=== PATIENT | female | born 1985 | race Caucasian/White ===

== ENCOUNTER 2018-11-01 15:00 | Outpatient (CLI) | payer BC | END 2018-11-01 15:01 | disposition home or self-care (01) | LOC: SLEEPLAB 15:00 | PROVIDERS: ATTEND Family Medicine | DX: G47.33 Obstructive sleep apnea (adult) (pediatric) (principal); R53.83 Other fatigue; R06.83 Snoring; F32.9 Major depressive disorder, single episode, unspecified; G47.00 Insomnia, unspecified; F90.9 Attention-deficit hyperactivity disorder, unspecified type | CPT/HCPCS: 95806 ==

== ENCOUNTER 2018-11-14 11:41 | Emergency (ER) | payer BC ==
[2018-11-14 12:10] LABS: #Basophils 0.1 thou/uL (0.0-0.2); #Lymphocytes 1.7 thou/uL (1.20-3.40); #Monocytes 0.5 thou/uL (0.11-0.59); #Neutrophils 4.4 thou/uL (1.40-6.50); %Basophils 0.9 % (0.0-1.0); %Eosinophils 0.4 % (0.0-10.0); %Monocytes 7.2 % (0.0-10.0); %Neutrophils 65.4 % (42.0-75.0); Hemoglobin 13.9 g/dL (12.0-16.0); Mean Corpuscular HGB CONC 33.3 g/dL (32.0-36.0); Mean Corpuscular Volume 89.9 fL (78.0-98.0); Mean Platelet Volume 6.4 fL (7.4-10.4); Platelet Count 341 thou/uL (130-400); RBC Distribution Width 11.4 % (11.5-14.5); Red Blood Cell (RBC) Count 4.63 mill/uL (4.20-5.40); White Blood Cell (WBC) Count 6.7 thou/uL (4.8-10.8)
[2018-11-14 12:18] LABS: Bilirubin Negative (Negative); Blood, Urine Trace (Negative); Glucose, Urine (Dipstick) Negative (Negative); Leukocyte Negative (Negative); Nitrite Negative (Negative); Protein, Urine (Dipstick) Negative (Neg-Trace); Urobilinogen 0.2 mg/dL (Less than 2)
[2018-11-14 12:19] LABS: Pregnancy Test - Urine (BHCG) Negative (Negative); Pregu Control Background? CLEAR/WHITE (CLR/WHITE); Pregu Control Bar Appear? YES (CONTROL BAR); Specific Gravity 1.015 (1.002-1.036)
[2018-11-14 12:27] LABS: Clarity Clear (Clear)
[2018-11-14 12:34] LABS: Bacteria/HPF Rare-Few HPF (None Seen); RBC/HPF 0-3 HPF (0-3); Squamous Epithelial 0-3 HPF (0-3); WBC/HPF 0-3 HPF (0-3)
[2018-11-14 12:36] LABS: ALT (SGPT) 16 U/L (8-55); AST (SGOT) 22 U/L (5-34); Albumin 4.5 g/dL (3.5-5.0); Alkaline Phosphatase 47 U/L (40-150); Anion Gap 13 mmol/L (10-20); BUN (Urea Nitrogen) 11 mg/dL (7.0-18.7); Bilirubin, Total 0.3 mg/dL (0.2-1.2); Calc. Creatinine Clearance 0 mL/min (70-130); Calcium 9.4 mg/dL (7.8-10.44); Carbon Dioxide 20 mmol/L (22-29); Chloride 108 mmol/L (98-107); Estimated GFR-MDRD 83; Glucose 94 mg/dL (70-105); Protein, Total 7.5 g/dL (6.0-8.3); Sodium 137 mmol/L (136-145)
--- NOTE | 2018-11-14 17:06 | CT ---
CT abdomen and pelvis noncontrast HISTORY: Left flank pain. FINDINGS: Each renal collecting system, ureter, and urinary bladder are decompressed without stone ap parent. Lack of contrast limits evaluation for other abnormalities. No evidence of bowel obstruction or infla mmation. Appendix is not inflamed. IMPRESSION: No CT evidence of urinary tract obstruction or calcification.
== END 2018-11-14 17:40 | disposition home or self-care (01) ==
LOC: ERS 11:41
DX: M54.5 Low back pain (principal); R11.0 Nausea; F32.9 Major depressive disorder, single episode, unspecified; Z79.899 Other long term (current) drug therapy
CPT/HCPCS: 36415; 74176; 80053; 81003; 81015; 81025; 83690; 85025

== ENCOUNTER 2018-12-03 06:57 | Outpatient (CLI) | payer BC ==
--- NOTE | 2018-12-03 08:15 | ULT ---
RIGHT UPPER QUADRANT ULTRASOUND: HISTORY: Right upper quadrant pain. FINDINGS: The liver, pancreas, gallbladder, and right kidney appear normal. The common duct measures 3 mm in d iameter. A negative sonographic Thornton sign is reported by the rn dermatology. No free fluid is seen i n the Valentin's pouch. IMPRESSION: Normal examination. POS: OFF
== END 2018-12-03 06:58 | disposition home or self-care (01) ==
LOC: ULT 06:57
PROVIDERS: ATTEND Internal Medicine Gastroenterology
DX: R10.11 Right upper quadrant pain (principal)
CPT/HCPCS: 76705

== ENCOUNTER 2018-12-17 14:22 | Outpatient (CLI) | payer BC ==
--- NOTE | 2018-12-17 15:08 | RAD ---
EXAM: 3 views of the lumbosacral spine HISTORY: Low back pain COMPARISON: None FINDINGS: 3 views of the lumbosacral spine shows normal height and alignment of the vertebral bodies and intervertebral discs without fracture or subluxation. No significant degenerative changes are seen. The sacroiliac joints are unremarkable. IMPRESSION: No significant lumbar spine abnormality.
== END 2018-12-17 14:23 | disposition home or self-care (01) ==
LOC: RAD 14:22
PROVIDERS: ATTEND Family Medicine
DX: M54.5 Low back pain (principal)
CPT/HCPCS: 72100

== ENCOUNTER 2019-06-23 12:16 | Outpatient (CLI) | payer BC ==
--- NOTE | 2019-06-23 13:17 | ULT ---
Pelvic sonogram transabdominal and transvaginal imaging with duplex evaluation HISTORY: Pelvic pain. FINDINGS: Urinary bladder is unremarkable. Uterus has a heterogeneous echotexture and measures up to 7.4 cm. Endometrium is 0.3 cm. No free fluid evident. Dominant follicle of the right ovary is 2.5 cm. Good color and spectral Doppler flow within each ovar y. IMPRESSION: Normal exam.
--- NOTE | 2019-06-23 15:52 | NM ---
EXAM: NM Hida Scan W Drug PROVIDED CLINICAL HISTORY: Right upper quadrant abdominal pain COMPARISON: None FINDINGS: There is prompt uptake and excretion of radiotracer by the liver. Gallbladder activity is faintly vis ualized by 9 minutes with increasing activity within the gallbladder imaging up to 60 minutes. Bowel activity is not definitively visualized. After 60 minutes of imaging, 8 ounces of ensure was ad ministered by mouth. A gallbladder ejection fraction of 71% was obtained with activity seen in the bowel at at 6 minutes post administration of ensure. A normal gallbladder ejection fraction is greate r than 33%. IMPRESSION: 1. No evidence of a cystic or common duct obstruction. 2. Normal gallbladder ejection fraction.
== END 2019-06-23 12:17 | disposition home or self-care (01) ==
LOC: NM 12:16
PROVIDERS: ATTEND Family Medicine
DX: R10.11 Right upper quadrant pain (principal)
CPT/HCPCS: 76856; 78227; A9537

== ENCOUNTER 2020-07-01 09:17 | Outpatient (CLI) | payer BC ==
--- NOTE | 2020-07-01 10:05 | RAD ---
Radiograph sacrum and coccyx 2 views: HISTORY: 35-year-old female with lumbosacral pain FINDINGS: No gross disruption of arcuate sacral lines. No grossly displaced fracture identified on lateral view . Mild vacuum joint phenomenon in bilateral SI joints without significant joint space narrowing and without large osteophytes or erosions. IMPRESSION: 1. Mild/minimal osteoarthrosis of bilateral sacroiliac joints. 2. Otherwise negative.
--- NOTE | 2020-07-01 10:06 | RAD ---
Lumbar spine 3 views: 07/01/2020 COMPARISON: 12/17/2018 HISTORY: Lumbosacral pain FINDINGS: 5 lumbar type vertebral bodies with intact pedicles on frontal imaging. Lateral exam demons trates normal vertebral body height and alignment. No acute osseous abnormality. IMPRESSION: No acute findings.
== END 2020-07-01 09:18 | disposition home or self-care (01) ==
LOC: RAD 09:17
PROVIDERS: ATTEND Family Medicine
DX: M54.5 Low back pain (principal); M47.818 Spondylosis without myelopathy or radiculopathy, sacral and sacrococcygeal region
CPT/HCPCS: 72100; 72220

== ENCOUNTER 2020-07-09 14:18 | Outpatient (CLI) | payer BC | END 2020-07-09 14:19 | disposition home or self-care (01) | LOC: BICULT 14:18 | PROVIDERS: ATTEND Urology | DX: R82.998 Other abnormal findings in urine (principal) | CPT/HCPCS: 76770 ==